=== PATIENT | female | born 1960 | race African-American/Black ===

== ENCOUNTER 2019-04-26 18:32 | Inpatient (IN) | payer OTHER ==
[2019-04-26 19:42] VITALS: BMI 16.6
--- NOTE | 2019-04-26 21:39 | HP ---
CIWA Score Nausea/Vomitin-Mild Nausea/No Vomiting Muscle Tremors: 3 Anxiety: 3 Agitation: 1-Slight > Activity Paroxysmal Sweats: 3 (Increased facial moisture) Orientation: 1-Uncertain about Date Tacttile Disturbances: 0-None Auditory Disturbances: 0-None Visual Disturbances: 0-None Headache: 0-None Present CIWA-Ar Total Score: 12 - Admission Criteria OAS Guidelines: Admission for Medically Managed Detox: Requires at least one of the followin. CIWA greater than 12 2. Seizures within the past 24 hours 3. Delirium tremens within the past 24 hours 4. Hallucinations within the past 24 hours 5. Acute intervention needed for co occurring medical disorder 6. Acute intervention needed for co occurring psychiatric disorder 7. Severe withdrawal that cannot be handled at a lower level of care (continued vomiting, continued diarrhea, abnormal vital signs) requiring intravenous medication and/or fluids 8. Patient presents the following: CIWA greater than 12 (KAREN: 0.017) Admission Criteria Met: Admission criteria met Admission ROS [facility] Chief Complaint: States here for detox. Allergies/Adverse Reactions: Allergies Allergy/AdvReac Type Severity Reaction Status Date / Time penicillin G Allergy Severe Swelling Verified 03/22/13 22:43 History of Present Illness: 59 yo presents w/ alcohol withdrawal and cocaine use disorder seeking detox. Alcohol use began at age [age]. Became problematic recently. Drinking everyday for weeks. Current use is 1-40 beer, 3-4 nips daily. Cocaine use began in 30's. Currently smokes $100/day. Oxycodone prescriptions ran out. Not buying illegally. States taking for LBP. Explained that opioid medications will not be prescribed and patient verrbalizes an understanding. Nicotine use began at age [age]. Currently smokes 1 PPD. Longest length of sobriety 4-5 years. 2012 - 2017 Denies hx seizures, blackouts, overdoses. PMHx: Chronic LBP. MHHx: Depression. Anxiety. Denies thoughts of harming self or others. Has not taken MH meds in months. SHx: Domiciled. Unemployed(SSI); Denies legal issues. Patient Name: Farhana Rojas Date: 1960 Address: [address] [place] [address] Sex: Female Rx Written Rx Dispensed Drug Quantity Days Supply Prescriber Name 04/12/2019 04/12/2019 oxycodone-acetaminophen 5-325 mg tablet 3 3 Mayra Troy () 03/27/2019 03/27/2019 oxycodone-acetaminophen 5-325 mg tab 10 2 Vida Magallanes MD Patient Name: Farhana Rojas Date: 1960 Address: [address] [place] [address] Sex: Female Rx Written Rx Dispensed Drug Quantity Days Supply Prescriber Name 03/08/2019 03/08/2019 oxycodone-acetaminophen 5-325 mg tablet 16 4 Jelani Abdul Jr 02/27/2019 02/27/2019 oxycodone-acetaminophen 5-325 mg tablet 12 4 Ina Quintana 05/03/2018 05/03/2018 acetaminophen-cod #3 tablet 20 3 Carlos Burgos (DDS) Exam Limitations: No Limitations - Ebola screening Have you traveled outside of the country in the last 21 days: No (NN) Have you had contact with anyone from an Ebola affected area: No Have you been sick,other than usual withdrawal symptoms: No Do you have a fever: No - Review of Systems Constitutional: Chills, Diaphoresis, Changes in sleep (Difficulty falling and staying asleep), Unintentional Wgt. Loss (r/t using drug) EENT: reports: Blurred Vision Respiratory: reports: No Symptoms reported Cardiac: reports: No Symptoms Reported GI: reports: Abdominal cramping : reports: No Symptoms Reported Musculoskeletal: reports: Back Pain (Chronic achy low back pain x 10 years - getting worse. Increases w/ sitting too long, walking, stairs. Improves w/ laying down.) Integumentary: reports: No Symptoms Reported Neuro: reports: Tremors Endocrine: reports: Increased Thirst Hematology: reports: No Symptoms Reported Psychiatric: reports: Agitated, Anxious, Depressed (Denies thoughts of harming self or others), Disorientated (Unsure of day/date. Knows month and year.) Patient History - Patient Medical History Hx Asthma: Yes Hx Chronic Obstructive Pulmonary Disease (COPD): No Hx Cardiac Disorders: No Hx Hypertension: No Hx Seizures: No Hx Diabetes: No Hx Gastrointestinal Disorders: No Hx Genitourinary Disorders: No Hx Sexually Transmitted Disorders: No Hx Renal Disease (ESRD): No Hx Human Immunodeficiency Virus (HIV): No Hx Hepatitis C: No Hx Depression: Yes Hx Suicide Attempt: Yes (2014-cut her self) Hx Schizophrenia: No - Patient Surgical History Past Surgical History: No Hx Neurologic Surgery: No Hx Cataract Extraction: No Hx Cardiac Surgery: No Hx Lung Surgery: No Hx Breast Surgery: No Hx Breast Biopsy: No Hx Abdominal Surgery: No Hx Appendectomy: No Hx Cholecystectomy: No Hx Genitourinary Surgery: No Hx Section: No Hx Orthopedic Surgery: No Anesthesia Reaction: No - PPD History Previous Implant?: Yes (Will order TB Gold test) Documented Results: Negative w/proof Implanted On Prior R Admission?: Yes Date: 03/29/13 PPD to be Administered?: No - Reproductive History Last Menstrual Period: 10/08/10 Patient : No - Smoking Cessation Smoking history: Current every day smoker Have you smoked in the past 12 months: Yes Aproximately how many cigarettes per day: 20 Hx Chewing Tobacco Use: No Initiated information on smoking cessation: Yes 'Breaking Loose' booklet given: 04/26/19 - Substance & Tx. History Hx Alcohol Use: Yes Hx Substance Use: Yes Substance Use Type: Alcohol, Cocaine Hx Substance Use Treatment: Yes (detox, rehab) - Substances abused Alcohol Substance route: Oral Frequency: Daily Amount used: 6pack of 12 oz of beer Age of first use: 19 Date of last use: 04/26/19 Crack Substance route: Smoking Frequency: Daily Amount used: $100 Age of first use: 30 Date of last use: 04/26/19 Other Other (specify): PERCOCET Substance route: Oral Frequency: 1-3 times last 30 days Amount used: 5 MG Age of first use: 59 Date of last use: 04/25/19 Family Disease History - Family Disease History Family Disease History: Other: Mother (ETOH DEPENDENT AND ) Admission Physical Exam S - Vital Signs Vital Signs: Vital Signs - 24 hr 04/26/19 19:29 Temperature 98.6 F Pulse Rate 97 H Respiratory 19 Rate Blood Pressure 120/83 - Physical General Appearance: Yes: Mild Distress, Thin, Tremorous, Sweating (Increased facial moisture), Anxious HEENTM: Yes: EOMI, Hearing grossly Normal, Normocephalic, Normal Voice, RED, Pharynx Normal Respiratory: Yes: Lungs Clear, Normal Breath Sounds, No Respiratory Distress Neck: Yes: No masses,lesions,Nodules, Supple Breast: Yes: Breast Exam Deferred Cardiology: Yes: Regular Rhythm, Regular Rate, S1, S2 Abdominal: Yes: Non Tender, Flat, Soft, Increased Bowel Sounds Genitourinary: Yes: Within Normal Limits Back: Yes: Normal Inspection Musculoskeletal: Yes: full range of Motion, Gait Steady Extremities: Yes: Normal Capillary Refill, Tremors (Mod tremors) Neurological: Yes: check examiner II-XII NML intact, Alert, Motor Strength 5/5, Disoriented (Unsure of date.) Integumentary: Yes: Normal Color, Warm, Diaphoresis (Increased facial moisture) , Other (Decreased skin turgor) - Diagnostic (1) Alcohol dependence with uncomplicated withdrawal Current Visit: Yes Status: Acute (2) Underweight Current Visit: Yes Status: Chronic (3) Chronic low back pain Current Visit: Yes Status: Chronic Qualifiers: Back pain laterality: midline Sciatica presence: without sciatica Qualified Code(s): M54.5 - Low back pain; G89.29 - Other chronic pain (4) Cocaine dependence Current Visit: Yes Status: Chronic (5) Nicotine dependence, uncomplicated Current Visit: Yes Status: Chronic Qualifiers: Nicotine product type: cigarettes Qualified Code(s): F17.210 - Nicotine dependence, cigarettes, uncomplicated Cleared for Admission [facility] - Detox or Rehab [facility] Level of Care: Medically Managed Detox Regimen/Protocol: Librium Claeared for Rehab Admission: No Breathalyzer - Breathalyzer Breathalyzer: 0.017 Urine Drug Screen - Test Device Lot number: [id number] Expiration date: 01/17/21 - Results Urine drug screen results: VITA-Cocaine, OXY-Oxycodone Inpatient Rehab Admission - Rehab Decision to Admit Inpatient rehab admission?: No
[2019-04-26] MEDS ORDERED: MENTHOL/PHENOL 1 EACH UD MM PRN (22:09)
[2019-04-26] MEDS ORDERED: LORazepam 1 MG TABLET PO PRN (22:09)
[2019-04-26] MEDS ORDERED: MAGNESIUM HYDROX 2400MG/30ML ORAL SUSPENSION 30 ML CUP PO PRN (22:09)
[2019-04-26] MEDS ORDERED: NICOTINE POLACRILEX 2 MG GUM BUC PRN (22:09)
[2019-04-26] MEDS ORDERED: MAGNESIUM CITRATE 300 ML BOTTLE PO PRN (22:09)
[2019-04-26] MEDS ORDERED: ACETAMINOPHEN 325 MG TABLET (FP) PO PRN (22:09)
[2019-04-26] MEDS ORDERED: METHOCARBAMOL 500 MG TABLET PO PRN (22:09)
[2019-04-26] MEDS ORDERED: MAG HYDROX/AL HYDROX/SIMETH 30 ML UNIT-DOSE CUP PO PRN (22:09)
[2019-04-26] MEDS: LORazepam 2 MG TABLET PO SCH (22:56)
[2019-04-26] MEDS: MELATONIN 5 MG TABLETS PO PRN (22:56)
[2019-04-27] MEDS: LORazepam 2 MG TABLET PO SCH ×4 (05:45→22:51)
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
--- NOTE | 2019-04-27 10:01 | PN ---
[facility] CIWA - CIWA Score Nausea/Vomitin-Mild Nausea/No Vomiting Muscle Tremors: 4-Moderate,w/Arms Extend Anxiety: 4-Mod. Anxious/Guarded Agitation: 2 Paroxysmal Sweats: 2 Orientation: 1-Uncertain about Date Tacttile Disturbances: 0-None Auditory Disturbances: 0-None Visual Disturbances: 0-None Headache: 0-None Present CIWA-Ar Total Score: 14 S Progress Note (SOAP) Subjective: 59 years old female 1st patient [facility] admission since 2012 was admitted on04/26/19 for alcohol withdrawal sx management doing well with valium detox regimen ate 90% breakfast resting on bed "better" than yesterday feeling tired preferred staying in bed today Objective: 04/27/19 10:02 Vital Signs Temperature 96.0 F L 04/27/19 09:45 Pulse Rate 98 H 04/27/19 09:45 Respiratory Rate 20 04/27/19 09:45 Blood Pressure 114/73 04/27/19 09:45 O2 Sat by Pulse Oximetry (%) 04/27/19 10:02 lab pending Assessment: 04/27/19 10:02 alcohol withdrawal sx alert limited conversation with staff 04/27/19 10:03 denies dizziness ambulating to bathroom from bed steady gait Plan: continue valium detox regimen
[2019-04-27] MEDS: PRENATAL VITAMINS W/ FOLIC ACID TABLET (FP) PO SCH (10:19)
[2019-04-27] MEDS: NICOTINE 14 MG/24 HOURS TOPICAL PATCH TD SCH (10:21)
[2019-04-27 10:25] LABS: HEMATOCRIT 33.8 % (32.4-45.2); HEMOGLOBIN 11.2 GM/dL (10.7-15.3); MEAN CELL VOLUME 84.7 fl (80-96); MEAN PLT VOLUME 8.3 fl (7.5-11.1); PLATELET COUNT 377 K/MM3 (134-434); RBC 3.99 M/mm3 (3.60-5.2); RDW 16.3 % (11.6-15.6); WHITE BLOOD COUNT 7.4 K/mm3 (4.0-10.0)
[2019-04-27 10:32] LABS: ALBUMIN 3.3 g/dl (3.4-5.0); BILIRUBIN,TOTAL 0.3 mg/dL (0.2-1); BLOOD UREA NITROGEN 11.4 mg/dL (7-18); CALCIUM 9.1 mg/dL (8.5-10.1); CREATININE 0.6 mg/dL (0.55-1.3); TOT PROT 6.5 g/dl (6.4-8.2)
[2019-04-27 12:11] LABS: RPR REACTIVE 1:1 (NONREACTIVE)
[2019-04-27 14:22] LABS: TREPONEMA ANTIBODY REACTIVE (NONREACTIVE)
--- NOTE | 2019-04-27 17:15 | EKG ---
Test Reason : Blood Pressure : / mmHG Vent. Rate : 096 BPM Atrial Rate : 096 BPM P-R Int : 136 ms QRS Dur : 082 ms QT Int : 358 ms P-R-T Axes : 072 069 072 degrees QTc Int : 452 ms NORMAL SINUS RHYTHM NORMAL ECG NO PREVIOUS ECGS AVAILABLE Confirmed by NIDIA TRAVIS MD ([id number]) on 04/27/2019 5:14:59 PM Referred By: LUCILLE TAYLOR Confirmed By:NIDIA TRAVIS MD
[2019-04-27] MEDS: guaiFENesin 200 MG/10 ML 10 ML UNIT-DOSE CUPS PO PRN ×2 (17:22→23:09)
[2019-04-27] MEDS: MELATONIN 5 MG TABLETS PO PRN (22:51)
[2019-04-27] MEDS: THIAMINE HCL 100 MG TABLET (FP) PO SCH (22:51)
[2019-04-27] MEDS: QUEtiapine FUMARATE 100 MG TABLET (FP) PO SCH (22:51)
[2019-04-27] MEDS: IBUPROFEN 400 MG TABLET (FP) PO PRN (23:10)
[2019-04-27] MEDS ORDERED: ALBUTEROL SO4 2.5/IPRATROPIUM 0.5 INH SOL 3 ML VIAL.NEB. NEB ONE (23:12)
--- NOTE | 2019-04-27 23:13 | PN ---
[facility] Progress Note Note: Continues to cough w/ c/o SOB. State has had Asthma in the past. Lungs clear. Cough quiet and non-productive. Vital Signs - 24 hr 04/27/19 04/27/19 04/27/19 03:39 06:42 09:45 Temperature 99 F 96.0 F L Pulse Rate 86 98 H Respiratory 18 16 20 Rate Blood Pressure 112/81 114/73 04/27/19 04/27/19 04/28/19 14:06 21:29 00:30 Temperature 97.3 F L 99.3 F Pulse Rate 96 H 105 H Respiratory 20 18 18 Rate Blood Pressure 132/91 112/87 CBC WBC 7.4 K/mm3 (4.0-10.0) 04/27/19 08:00 RBC 3.99 M/mm3 (3.60-5.2) 04/27/19 08:00 Hgb 11.2 GM/dL (10.7-15.3) 04/27/19 08:00 Hct 33.8 % (32.4-45.2) D 04/27/19 08:00 MCV 84.7 fl (80-96) 04/27/19 08:00 MCH 28.0 pg (25.7-33.7) 04/27/19 08:00 MCHC 33.0 g/dl (32.0-36.0) 04/27/19 08:00 RDW 16.3 % (11.6-15.6) H 04/27/19 08:00 Plt Count 377 K/MM3 (134-434) D 04/27/19 08:00 MPV 8.3 fl (7.5-11.1) D 04/27/19 08:00 Plan: Change guaifenesin to scheduled rather than PRN. Albuterol w/ ipratropium neb tx given and patient stated had less SOB. Will order neb tx q6h prn SOB or wheezing. Will start on Singulair qhs.
[2019-04-27] MEDS: guaiFENesin 200 MG/10 ML 10 ML UNIT-DOSE CUPS PO SCH (23:28)
[2019-04-28] MEDS: LORazepam 1 MG TABLET PO SCH ×4 (05:29→22:16)
[2019-04-28] MEDS ORDERED: ALBUTEROL SO4 2.5/IPRATROPIUM 0.5 INH SOL 3 ML VIAL.NEB. NEB PRN (06:00)
[2019-04-28] MEDS: guaiFENesin 200 MG/10 ML 10 ML UNIT-DOSE CUPS PO SCH ×3 (06:30→22:16)
[2019-04-28] MEDS: PRENATAL VITAMINS W/ FOLIC ACID TABLET (FP) PO SCH (10:29)
[2019-04-28] MEDS: NICOTINE 14 MG/24 HOURS TOPICAL PATCH TD SCH (10:29)
--- NOTE | 2019-04-28 11:51 | PN ---
[facility] CIWA - CIWA Score Nausea/Vomitin-No Nausea/No Vomiting Muscle Tremors: 2 Anxiety: 3 Agitation: 1-Slight > Activity Paroxysmal Sweats: 2 Orientation: 0-Oriented Tacttile Disturbances: 1-Very Mild Itch/Numbness Auditory Disturbances: 0-None Visual Disturbances: 0-None Headache: 0-None Present CIWA-Ar Total Score: 9 S Progress Note (SOAP) Subjective: doing well with ativan detox regimen able to speak with complete sentence resting on bed comfortably no trouble chewing swallowing food and fluid no wheezing breath ease and even Objective: 04/28/19 11:50 Vital Signs Temperature 98.8 F 04/28/19 09:27 Pulse Rate 102 H 04/28/19 09:27 Respiratory Rate 18 04/28/19 09:27 Blood Pressure 104/73 04/28/19 09:27 O2 Sat by Pulse Oximetry (%) Laboratory Last Values WBC 7.4 K/mm3 (4.0-10.0) 04/27/19 08:00 RBC 3.99 M/mm3 (3.60-5.2) 04/27/19 08:00 Hgb 11.2 GM/dL (10.7-15.3) 04/27/19 08:00 Hct 33.8 % (32.4-45.2) D 04/27/19 08:00 MCV 84.7 fl (80-96) 04/27/19 08:00 MCH 28.0 pg (25.7-33.7) 04/27/19 08:00 MCHC 33.0 g/dl (32.0-36.0) 04/27/19 08:00 RDW 16.3 % (11.6-15.6) H 04/27/19 08:00 Plt Count 377 K/MM3 (134-434) D 04/27/19 08:00 MPV 8.3 fl (7.5-11.1) D 04/27/19 08:00 Sodium 137 mmol/L (136-145) 04/27/19 08:00 Potassium 4.0 mmol/L (3.5-5.1) 04/27/19 08:00 Chloride 102 mmol/L (98-107) 04/27/19 08:00 Carbon Dioxide 29 mmol/L (21-32) 04/27/19 08:00 Anion Gap 7 MMOL/L (8-16) L 04/27/19 08:00 BUN 11.4 mg/dL (7-18) 04/27/19 08:00 Creatinine 0.6 mg/dL (0.55-1.3) 04/27/19 08:00 Est GFR (CKD-EPI)AfAm 115.63 04/27/19 08:00 Est GFR (CKD-EPI)NonAf 99.77 04/27/19 08:00 Random Glucose 108 mg/dL (74-106) H 04/27/19 08:00 Calcium 9.1 mg/dL (8.5-10.1) 04/27/19 08:00 Total Bilirubin 0.3 mg/dL (0.2-1) 04/27/19 08:00 AST 50 U/L (15-37) H 04/27/19 08:00 ALT 23 U/L (13-61) 04/27/19 08:00 Alkaline Phosphatase 108 U/L (45-117) 04/27/19 08:00 Total Protein 6.5 g/dl (6.4-8.2) 04/27/19 08:00 Albumin 3.3 g/dl (3.4-5.0) L 04/27/19 08:00 RPR Titer Reactive 1:1 (NONREACTIVE) H D 04/27/19 08:00 T.pallidum Ab (MHA) Reactive (NONREACTIVE) 04/27/19 08:00 lab noted Assessment: 04/28/19 11:50 alcohol withdrawal sx Plan: continue ativan detox regimen
[2019-04-28] MEDS: ACETAMINOPHEN 325 MG TABLET (FP) PO PRN (15:32)
[2019-04-28] MEDS: IBUPROFEN 400 MG TABLET (FP) PO PRN (21:23)
[2019-04-28] MEDS: MONTELUKAST NA 10 MG TABLET PO SCH (22:16)
[2019-04-28] MEDS: QUEtiapine FUMARATE 100 MG TABLET (FP) PO SCH (22:16)
[2019-04-28] MEDS: THIAMINE HCL 100 MG TABLET (FP) PO SCH (22:16)
[2019-04-29] MEDS ORDERED: LORazepam 0.5 MG TABLET PO PRN
[2019-04-29] MEDS: guaiFENesin 200 MG/10 ML 10 ML UNIT-DOSE CUPS PO SCH ×5 (00:46→23:22)
[2019-04-29] MEDS: LORazepam 0.5 MG TABLET PO SCH ×4 (06:23→22:33)
[2019-04-29] MEDS: PRENATAL VITAMINS W/ FOLIC ACID TABLET (FP) PO SCH (10:41)
[2019-04-29] MEDS: NICOTINE 14 MG/24 HOURS TOPICAL PATCH TD SCH (10:41)
--- NOTE | 2019-04-29 13:00 | PN ---
[facility] CIWA - CIWA Score Nausea/Vomitin-No Nausea/No Vomiting Muscle Tremors: 2 Anxiety: 2 Agitation: 2 Paroxysmal Sweats: No Perspiration Orientation: 0-Oriented Tacttile Disturbances: 0-None Auditory Disturbances: 0-None Visual Disturbances: 0-None Headache: 0-None Present CIWA-Ar Total Score: 6 B[facility] Progress Note (SOAP) Subjective: doing well with ativan detox regimen mild tremor and anxiety sitting on the edge of the bed eating breakfast no trouble chewing or swallowing Objective: 04/29/19 12:59 Vital Signs Temperature 99 F 04/29/19 09:15 Pulse Rate 108 H 04/29/19 09:15 Respiratory Rate 17 04/29/19 09:15 Blood Pressure 102/69 04/29/19 09:15 O2 Sat by Pulse Oximetry (%) Laboratory Last Values WBC 7.4 K/mm3 (4.0-10.0) 04/27/19 08:00 RBC 3.99 M/mm3 (3.60-5.2) 04/27/19 08:00 Hgb 11.2 GM/dL (10.7-15.3) 04/27/19 08:00 Hct 33.8 % (32.4-45.2) D 04/27/19 08:00 MCV 84.7 fl (80-96) 04/27/19 08:00 MCH 28.0 pg (25.7-33.7) 04/27/19 08:00 MCHC 33.0 g/dl (32.0-36.0) 04/27/19 08:00 RDW 16.3 % (11.6-15.6) H 04/27/19 08:00 Plt Count 377 K/MM3 (134-434) D 04/27/19 08:00 MPV 8.3 fl (7.5-11.1) D 04/27/19 08:00 Sodium 137 mmol/L (136-145) 04/27/19 08:00 Potassium 4.0 mmol/L (3.5-5.1) 04/27/19 08:00 Chloride 102 mmol/L (98-107) 04/27/19 08:00 Carbon Dioxide 29 mmol/L (21-32) 04/27/19 08:00 Anion Gap 7 MMOL/L (8-16) L 04/27/19 08:00 BUN 11.4 mg/dL (7-18) 04/27/19 08:00 Creatinine 0.6 mg/dL (0.55-1.3) 04/27/19 08:00 Est GFR (CKD-EPI)AfAm 115.63 04/27/19 08:00 Est GFR (CKD-EPI)NonAf 99.77 04/27/19 08:00 Random Glucose 108 mg/dL (74-106) H 04/27/19 08:00 Calcium 9.1 mg/dL (8.5-10.1) 04/27/19 08:00 Total Bilirubin 0.3 mg/dL (0.2-1) 04/27/19 08:00 AST 50 U/L (15-37) H 04/27/19 08:00 ALT 23 U/L (13-61) 04/27/19 08:00 Alkaline Phosphatase 108 U/L (45-117) 04/27/19 08:00 Total Protein 6.5 g/dl (6.4-8.2) 04/27/19 08:00 Albumin 3.3 g/dl (3.4-5.0) L 04/27/19 08:00 RPR Titer Reactive 1:1 (NONREACTIVE) H D 04/27/19 08:00 T.pallidum Ab (MHA) Reactive (NONREACTIVE) 04/27/19 08:00 lab noted Assessment: 04/29/19 13:00 alcohol withdrawal sx Plan: continue ativan detox regimen
[2019-04-29] MEDS ORDERED: IBUPROFEN 600 MG TABLET (FP) PO PRN (17:06)
[2019-04-29] MEDS: MONTELUKAST NA 10 MG TABLET PO SCH (22:33)
[2019-04-29] MEDS: THIAMINE HCL 100 MG TABLET (FP) PO SCH (22:33)
[2019-04-29] MEDS: QUEtiapine FUMARATE 100 MG TABLET (FP) PO SCH (22:33)
[2019-04-29] MEDS: ACETAMINOPHEN 325 MG TABLET (FP) PO PRN (22:37)
[2019-04-30] MEDS ORDERED: LORazepam 0.5 MG TABLET PO ONE (05:00)
[2019-04-30] MEDS: guaiFENesin 200 MG/10 ML 10 ML UNIT-DOSE CUPS PO SCH ×2 (05:12→12:08)
[2019-04-30] MEDS: BISMUTH SUBSALICYLATE 524 MG/30 ML UD PO PRN ×3 (05:14→12:09)
[2019-04-30] MEDS: PRENATAL VITAMINS W/ FOLIC ACID TABLET (FP) PO SCH (09:11)
[2019-04-30] MEDS: NICOTINE 14 MG/24 HOURS TOPICAL PATCH TD SCH (09:12)
[2019-04-30 09:31] VITALS: BP 104/69; PULSE 99; TEMP 98.4
--- NOTE | 2019-04-30 11:52 | DS ---
[facility] Detox Discharge Summary Admission Date: 04/26/19 Discharge Date: 04/30/19 - History Present History: Alcohol Dependence Additional Comments: 59 years old female admitted on 04/26/19 for alcohol withdrawal sx management did well with ativan detox regimen no complication through out the detox stay patient is alert oriented x 3 cardiac S1S2 regular rhythm respiration no advantitial lung sound abdomen soft ate 90% breakfast - Physical Exam Results Vital Signs: Vital Signs Temperature 98.4 F 04/30/19 09:30 Pulse Rate 99 H 04/30/19 09:30 Respiratory Rate 20 04/30/19 09:30 Blood Pressure 104/69 04/30/19 09:30 O2 Sat by Pulse Oximetry (%) Pertinent Admission Physical Exam Findings: alcohol withdrawal sx Laboratory Last Values WBC 7.4 K/mm3 (4.0-10.0) 04/27/19 08:00 RBC 3.99 M/mm3 (3.60-5.2) 04/27/19 08:00 Hgb 11.2 GM/dL (10.7-15.3) 04/27/19 08:00 Hct 33.8 % (32.4-45.2) D 04/27/19 08:00 MCV 84.7 fl (80-96) 04/27/19 08:00 MCH 28.0 pg (25.7-33.7) 04/27/19 08:00 MCHC 33.0 g/dl (32.0-36.0) 04/27/19 08:00 RDW 16.3 % (11.6-15.6) H 04/27/19 08:00 Plt Count 377 K/MM3 (134-434) D 04/27/19 08:00 MPV 8.3 fl (7.5-11.1) D 04/27/19 08:00 Sodium 137 mmol/L (136-145) 04/27/19 08:00 Potassium 4.0 mmol/L (3.5-5.1) 04/27/19 08:00 Chloride 102 mmol/L (98-107) 04/27/19 08:00 Carbon Dioxide 29 mmol/L (21-32) 04/27/19 08:00 Anion Gap 7 MMOL/L (8-16) L 04/27/19 08:00 BUN 11.4 mg/dL (7-18) 04/27/19 08:00 Creatinine 0.6 mg/dL (0.55-1.3) 04/27/19 08:00 Est GFR (CKD-EPI)AfAm 115.63 04/27/19 08:00 Est GFR (CKD-EPI)NonAf 99.77 04/27/19 08:00 Random Glucose 108 mg/dL (74-106) H 04/27/19 08:00 Calcium 9.1 mg/dL (8.5-10.1) 04/27/19 08:00 Total Bilirubin 0.3 mg/dL (0.2-1) 04/27/19 08:00 AST 50 U/L (15-37) H 04/27/19 08:00 ALT 23 U/L (13-61) 04/27/19 08:00 Alkaline Phosphatase 108 U/L (45-117) 04/27/19 08:00 Total Protein 6.5 g/dl (6.4-8.2) 04/27/19 08:00 Albumin 3.3 g/dl (3.4-5.0) L 04/27/19 08:00 RPR Titer Reactive 1:1 (NONREACTIVE) H D 04/27/19 08:00 T.pallidum Ab (MHA) Reactive (NONREACTIVE) 04/27/19 08:00 TB (QFT) Incubation (.) 04/27/19 08:00 TB Test (QFT) Nil 0.13 IU/mL (.) 04/27/19 08:00 TB Test (QFT) Mitogen >10.00 IU/mL (.) 04/27/19 08:00 TB Test (QFT) Antigen 0.10 IU/mL (.) 04/27/19 08:00 TB Test (QFT) Negative (Negative) 04/27/19 08:00 TB Positive Criteria (.) 04/27/19 08:00 lab noted history of syphilis allergic to penicilline completed oral regimen "many years ago" - Treatment Hospital Course: Detox Protocol Followed, Detoxed Safely, Responded well, Discharged Condition Good, Rehab Referral Accepted Patient has Accepted [facility] - Medication Discharge Medications: Ambulatory Orders Quetiapine Fumarate "Xr" [Seroquel XR] 150 mg PO HS 03/22/13 Escitalopram Oxalate [Lexapro -] 20 mg PO DAILY #30 tablet 04/18/13 - Diagnosis (1) Alcohol dependence with uncomplicated withdrawal Current Visit: Yes Status: Chronic (2) COPD (chronic obstructive pulmonary disease) Current Visit: Yes Status: Chronic Qualifiers: COPD type: emphysema Emphysema type: unspecified Qualified Code(s): J43.9 - Emphysema, unspecified (3) Underweight Current Visit: Yes Status: Acute (4) Substance induced mood disorder Current Visit: Yes Status: Suspected - AMA Did Patient Leave Against Medical Advice: No CIWA Score - CIWA Score Nausea/Vomitin-No Nausea/No Vomiting Muscle Tremors: 1-None Visible, but [place] Anxiety: 1-Mildly Anxious Agitation: 1-Slight > Activity Paroxysmal Sweats: No Perspiration Orientation: 0-Oriented Tacttile Disturbances: 0-None Auditory Disturbances: 0-None Visual Disturbances: 0-None Headache: 0-None Present CIWA-Ar Total Score: 3
== END 2019-04-30 14:55 | disposition home or self-care (01) | DRG 774 ==
LOC: YASAS 18:32 → Y3N 21:13
PROVIDERS: ADMIT Surgery; ATTEND Surgery
PROC: HZ2ZZZZ Detoxification Services for Substance Abuse Treatment (ICD-10-PCS; principal; 2019-04-26)
DX: F10.230 Alcohol dependence with withdrawal, uncomplicated (principal); F14.20 Cocaine dependence, uncomplicated; F10.10 Alcohol abuse, uncomplicated; F17.210 Nicotine dependence, cigarettes, uncomplicated; F19.24 Other psychoactive substance dependence with psychoactive substance-induced mood disorder; F19.282 Other psychoactive substance dependence with psychoactive substance-induced sleep disorder; F43.10 Post-traumatic stress disorder, unspecified; F32.9 Major depressive disorder, single episode, unspecified; J43.9 Emphysema, unspecified; R63.6 Underweight; Z68.1 Body mass index [BMI] 19.9 or less, adult; M54.5 Low back pain; G89.29 Other chronic pain; Z88.0 Allergy status to penicillin; Z91.5 Personal history of self-harm
CPT/HCPCS: 36415; 80053; 85027; 86480; 86593; 86780; 93005; 93010; 94640